=== PATIENT | male | born 1945 | race Caucasian/White ===

== ENCOUNTER 2025-04-26 14:28 | Emergency (ER) | payer OTHER, MEDICARE ==
[2025-04-26 15:41] LABS: APPEARANCE,URINE CLOUDY (CLEAR); GLUCOSE,URINE NEGATIVE (NEGATIVE); OCCULT BLOOD,URINE SMALL (NEGATIVE); SQUAMOUS EPITHELIAL CELLS,UR FEW /HPF
== END 2025-04-26 17:56 | disposition home or self-care (01) ==
LOC: JP.ED 14:28
DX: S20.212A Contusion of left front wall of thorax, initial encounter (principal); I10 Essential (primary) hypertension; V49.59XA Passenger injured in collision with other motor vehicles in traffic accident, initial encounter; Y93.89 Activity, other specified
CPT/HCPCS: 71045; 71045-26; 73560-26-LT; 73560-LT; 81001; 93005; 99283; 99284